=== PATIENT | female | born 1980 | race African-American/Black ===

== ENCOUNTER 2017-10-04 13:06 | Emergency (ER) | payer OTHER ==
[~2017-10-04] VITALS: Ht 160 cm; Wt 72.6 kg
[2017-10-04 13:34] LABS: URINE BILIRUBIN NEGATIVE (Negative); URINE BLOOD TRACE (Negative); URINE CLARITY CLEAR; URINE COLOR YELLOW; URINE GLUCOSE-RANDOM* NEGATIVE (Negative); URINE KETONES NEGATIVE (Negative); URINE LEUKOCYTES 1+ (Negative); URINE NITRITE POSITIVE (Negative); URINE PROTEIN (DIPSTICK) NEGATIVE (Negative)
[2017-10-04 13:43] LABS: CASTS None Seen /LPF (None Seen); CRYSTALS None Seen /LPF (None Seen); SQUAMOUS 4-10 Moderate /LPF (0-3); URINE RBC 3-10 Few /HPF (0-2)
[2017-10-04 13:44] LABS: BACTERIA >30 Many /HPF (None Seen); URINE WBC >25 Many /HPF (0-5)
[2017-10-04] MEDS ORDERED: NORCO 5-325 TA1 EACH PO (13:50)
[2017-10-04] MEDS ORDERED: PREDNISONE 20 M20 MG PO (13:50)
[2017-10-04] MEDS ORDERED: MACROBID 100 M100 M1 PO (13:50)
== END 2017-10-04 14:45 | disposition home or self-care (01) ==
LOC: ER 13:06
PROVIDERS: Emergency Medicine
DX: N39.0 Urinary tract infection, site not specified (principal); M79.1 Myalgia; M54.30 Sciatica, unspecified side